=== PATIENT | male | born 1990 | race African-American/Black ===

== ENCOUNTER 2017-08-31 14:55 | Emergency (ER) | payer OTHER ==
[2017-08-31] MEDS: TAMSULOSIN HCL 0.4 MG CAP.ER.24H PO ONE ×2 (15:16)
[2017-08-31] MEDS: 0.9 % SODIUM CHLORIDE 1,000 ML IV ONE ×2 (15:17)
[2017-08-31] MEDS: KETOROLAC TROMETHAMINE 30 MG/1ML VIAL ONE (15:17)
[2017-08-31] MEDS: KETOROLAC TROMETHAMINE 30 MG/1ML VIAL IVP ONE (15:18)
[2017-08-31 15:25] LABS: BASOPHILS % 0.3 (0.0-1.5); EOSINOPHILS % 0.5 % (0.0-6.8); MEAN CORPUSCULAR HEMOGLOBIN 31.3 pg (28.0-34.0); MEAN CORPUSCULAR VOLUME 90.2 fl (80.0-100.0); NEUTROPHILS # 8.1 # k/uL (1.4-7.7)
[2017-08-31 15:29] LABS: APPEARANCE,URINE Clear (CLEAR); COLOR,URINE Yellow (YELLOW); OCCULT BLOOD,URINE 3+ (NEGATIVE); UROBILINOGEN URINE 0.2 Eu (0.2-1.0)
[2017-08-31 15:41] LABS: eGFR (African) > 60; eGFR (Non-African) > 60
--- NOTE | 2017-08-31 17:41 | ED Physician Documentation ---
Male Genitourinary Problems - HISTORIAN Historian: patient - HPI Stated Complaint: L flank pain Chief Complaint: Male Genitourinary Problems Additional Information: left flank pain since this am Onset: hours (6) Duration: continues in ED Severity: moderate Further Comments: no - Associated Symptoms Problems Urinating: frequent urination, discomfort w/ urination Penile Pain: No Penile Swelling: No Inguinal Mass: No Flank Pain: left sided Abdominal Pain: LLQ - Sexual History Sexual History: non-contributory - ROS CONST: no problems GI/: denies: nausea, vomiting, abdominal pain, problems urinating MS/SKIN/LYMPH: none CVS/RESP: none EYES/ENT: none NEURO/PSYCH: denies: fainting, dizziness, tingling, numbness, anxiety, depression - PAST HX Past History: other (left sided kidney stone x 1 in past) Cardiac Disease: none Surgeries/Procedures: none Immunizations: referred to PCP Allergies/Adverse Reactions: Allergies Allergy/AdvReac Type Severity Reaction Status Date / Time codeine Allergy Verified 08/31/17 15:10 Home Medications: Ambulatory Orders Medication Instructions Recorded NK [NK] 08/31/17 - SOCIAL HX Smoking History: cigarettes Alcohol Use: none Drug Use: none - FAMILY HX Family History: none - VITAL SIGNS Vital Signs: Vital Signs Temp Pulse Resp BP Pulse Ox 98.2 F 78 18 128/71 98 08/31/17 17:49 08/31/17 17:49 08/31/17 17:49 08/31/17 17:49 08/31/17 17:49 - REVIEWED ASSESSMENTS Nursing Assessment Reviewed: Yes Vitals Reviewed: Yes Progress - Results/Orders Results/Orders: cbc, cmp, amylase, ua, ct abdomen/pelvis ordered - Progress Progress: pt. given 1 liter ns, toradol 30 mg ivp and flomax 0.4 mg p.o. in er Critical Care Note - Critical Care Note Total Time (mins): 0 ED Results Lab/Radiology - Lab Results Lab Results: Lab Results 08/31/17 08/31/17 08/31/17 15:20 15:20 15:20 WBC 10.40 K/ul K/ul (4.00-12.00) RBC 4.93 M/ul M/ul (3.90-5.20) Hgb 15.4 g/dL g/dL (12.0-18.0) Hct 44.4 % % (37.0-53.0) MCV 90.2 fl fl (80.0-100.0) MCH 31.3 pg pg (28.0-34.0) MCHC 34.7 g/dL g/dL (30.0-36.0) RDW 12.4 % % (11.3-14.3) Plt Count 258 K/mm3 K/mm3 (130-400) Neut % (Auto) 78.0 % % (39.0-79.0) Lymph % (Auto) 16.0 % % (16.0-50.0) [place] % (Auto) 4.0 % % (0.0-11.0) Eos % (Auto) 0.5 % % (0.0-6.8) Baso % (Auto) 0.3 (0.0-1.5) Neut # (Auto) 8.1 # k/uL H # k/uL (1.4-7.7) Lymph # (Auto) 1.7 # k/uL # k/uL (0.6-4.0) [place] # (Auto) 0.4 # k/uL # k/uL (0.0-0.9) Eos # (Auto) 0.0 # k/uL # k/uL (0.0-0.6) Baso # (Auto) 0.0 # k/uL # k/uL (0.0-0.5) Reactive Lymphs % 1.2 % % (0.0-5.0) Reactive Lymphs # 0.1 # k/uL # k/uL (0.0-0.8) Sodium 143 mmol/L mmol/L (136-145) Potassium 3.6 mmol/L mmol/L (3.5-5.1) Chloride 101 mmol/L mmol/L (98-107) Carbon Dioxide 29 mmol/L mmol/L (22-30) BUN 7 mg/dL L mg/dL (9-20) Creatinine 1.00 mg/dL mg/dL (0.66-1.25) Estimated Creat Clear 132 Est GFR ( Amer) > 60 (60 - ) Est GFR (Non-Af Amer) > 60 (60 - ) Glucose 110 mg/dL H mg/dL (74-106) Calcium 9.2 mg/dL mg/dL (8.4-10.2) Total Bilirubin 0.8 mg/dL mg/dL (0.2-1.3) AST 20 U/L U/L (15-46) ALT 26 U/L U/L (13-69) Alkaline Phosphatase 84 U/L U/L (38-126) Total Protein 7.5 g/dL g/dL (6.3-8.2) Albumin 4.5 g/dL g/dL (3.5-5.0) Urine Color Yellow (YELLOW) Urine Appearance Clear (CLEAR) Urine pH 7.0 (5.0 - 8.0) Ur Specific [place] 1.025 (1.010-1.030) Urine Protein Negative mg/dL mg/dL (NEGATIVE) Urine Ketones Negative mg/dL mg/dL (NEGATIVE) Urine Occult Blood 3+ H (NEGATIVE) Urine Nitrite Negative (NEGATIVE) Urine Bilirubin Negative (NEGATIVE) Urine Urobilinogen 0.2 Eu Eu (0.2-1.0) Ur Leukocyte Esterase Negative (NEGATIVE) Urine RBC 2-5 H (0-2 HPF) Urine WBC 10-25 H (0-5 HPF) Urine Mucus Present H (NEGATIVE) Urine Glucose Negative mg/dL mg/dL (NEGATIVE) - Radiology Radiology Impressions: ct shows 2 mm stone left ureterovessicular junction - Orders Orders: ED Orders Category Date Time Status CT ABD & PELVIS W/O CON Stat Exams 08/31/17 Completed CBC/PLATELET/DIFF Routine Lab 08/31/17 15:20 Completed CMP Routine Lab 08/31/17 15:20 Completed URINALYSIS Routine Lab 08/31/17 15:20 Completed URINE CULTURE Routine Lab 08/31/17 15:20 Received 0.9 % Sodium Chloride [Normal Saline] 1,000 ml Med 08/31/17 15:10 Discontinued IV .STK-MED 0.9 % Sodium Chloride [Normal Saline] 1,000 ml Med 08/31/17 15:10 Discontinued IV Q1H Ketorolac Tromethamine [Toradol] Med 08/31/17 15:10 Discontinued 30 mg .ROUTE .STK-MED ONE Ketorolac Tromethamine [Toradol] Med 08/31/17 15:10 Discontinued 30 mg IVP NOW ONE Tamsulosin HCl [Flomax] Med 08/31/17 15:10 Discontinued 0.4 mg PO .STK-MED ONE Tamsulosin HCl [Flomax] Med 08/31/17 15:10 Discontinued 0.4 mg PO NOW ONE Male Genitourinary Problems - EXAM General Appearance: alert, moderate distress Abdomen: tenderness (left lower quadrant) Genitals: nml inspection Cremasteric Reflexes: strong EENT: eye inspection normal, ENT inspection normal, pharynx normal, no signs of dehydration, JOSE MARTIN, no nystagmus, TM's nml Neck: nml inspection Respiratory: no resp distress, chest non-tender, breath sounds normal CVS: reg rate & rhythm, heart sounds normal, equal pulses, no murmur, no gallop , PMI nml, no JVD Back: non-tender Extremities: normal range of motion, non-tender, normal inspection, no pedal edema, no calf tenderness Neuro/Psych: oriented X3, CN's nml as tested, motor nml, sensation nml, mood/ affect nml, cognition normal Skin: warm/dry, normal color Discharge Clincal Impression: Kidney stone on left side Referrals: Primary Doctor,No [Primary Care Provider] - 2 Days Comments: Discharged in stable condition and significantly improved condition with script for Ibuprofen 800 mg 1 p.o. tid prn pain, increased fluids. Condition: Stable Disposition: 01 HOME, SELF-CARE Decision to Admit: NO Decision Time: 17:41
[2017-08-31 17:50] VITALS: BP 128/71
--- NOTE | 2017-08-31 19:09 | Diagnostic Imaging Report ---
SOPHIE ESPANA [facility] [address] [facility] [address] [place] [address]. [id number] Report Submission Date: Aug 31, 2017 4:42:57 PM ROOFER Patient Study Name: BISHNU FRITZ Date: Aug 31, 2017 3:51:35 PM ROOFER Modality Type: CT\SR Gender: M Description: RENAL STONE PROTOCOL : 89 Institution: [facility] Physician: SOPHIE ESPANA Examination: CT Abdomen/pelvis History: CT A/P STONE STUDY, LEFT FLANK PAIN X3-4 HOURS, HX OF STONES X3-4 MONTHS AGO (Hx) / LEFT FLANK PAIN, STONE PROTOCOL (DICOM Hx) Comparison exams: None available Technique: CT Abdomen/pelvis without contrast protocol. Findings: Left kidney is slightly prominent when compared with the right. No cortical or calyceal calcifications. Prominence of the left ureter in its course through the abdomen and pelvis. 2 mm calcification at the left ureterovesicular junction. Right ureter without abnormal dilation or central calcification. Liver, spleen, adrenals, and pancreas are without gross irregularity given exam technique. Gallbladder contracted without evidence for gallstone. Abdominal aorta without aneurysm or peripheral atherosclerotic disease. Cardiac silhouette is not enlarged. No pericardial effusion. Bowel unopacified limiting evaluation. No mesenteric inflammatory changes or free fluid. No abnormal small bowel dilation. Stool throughout the large bowel limiting sensitivity. Appendix is visualized and is without inflammatory changes. Osseous structures within normal limits. Slight curvature to the right. Lung bases demonstrate dependent atelectasis. No effusion. Impression: 2 mm ureterolithiasis at the left ureterovesicular junction with proximal ureteric dilation - obstructive uropathy. No evidence for nephrolithiasis. No evidence for acute upper abdominal organ inflammatory process. No abnormal bowel dilation or inflammation. No gallstone. No focal parenchymal consolidation or effusion. Electronically signed on Aug 31, 2017 4:42:57 PM ROOFER by: Blake GREEN
== END 2017-08-31 17:49 | disposition home or self-care (01) ==
LOC: ED 14:55
DX: N20.0 Calculus of kidney (principal); F17.210 Nicotine dependence, cigarettes, uncomplicated
CPT/HCPCS: 74176; 80053; 81002; 85025; 87086; J1885; J7030; 96365; 96375; 99283; S1016